=== PATIENT | female | born 1980 | race Caucasian/White ===

== ENCOUNTER 2020-05-15 16:02 | Emergency (ER) | payer SELFPAY ==
[~2020-05-15] VITALS: Ht 170.2 cm; Wt 54.5 kg
[2020-05-15 16:27] VITALS: BP 113/41
== END 2020-05-15 18:54 | disposition left against medical advice (07) ==
LOC: ER 16:02
DX: T16.1XXA Foreign body in right ear, initial encounter (principal); Z53.21 Procedure and treatment not carried out due to patient leaving prior to being seen by health care provider; X58.XXXA Exposure to other specified factors, initial encounter; Y93.89 Activity, other specified; Y92.89 Other specified places as the place of occurrence of the external cause; Y99.8 Other external cause status